=== PATIENT | female | born 1970 | race Caucasian/White ===

== ENCOUNTER 2017-07-28 19:06 | Emergency (ER) | payer OTHER ==
[2017-07-28] MEDS ORDERED: NS 1,000 ML IV ONE (19:51)
--- NOTE | 2017-07-28 19:52 | EDPHY ---
H & P Smoking Status: Never smoked Time Seen by Provider: 07/28/17 19:31 HPI/ROS: Patient was seen by Dr. Jones and not by me (Sammy Palmer) CHIEF COMPLAINT: Lightheadedness, chest pain, myalgias, cough HISTORY OF PRESENT ILLNESS: The patient has a number of chronic medical conditions including fibromyalgia, Lyme disease and rheumatoid arthritis. She presents to the ED with a constellation of symptoms including persistent tachycardia, neck pain, lightheadedness and a several week history of cough. The patient denies any vomiting, fever or diarrhea. She denies dysuria. She denies asymmetric calf pain or swelling. She denies recent immobilization. REVIEW OF SYSTEMS: A comprehensive 10 point review of systems is otherwise negative aside from elements mentioned in the history of present illness. (Ludwin Jones) Physical Exam: General Appearance: Alert, anxious, no acute distress Eyes: Pupils equal and round no pallor or injection ENT, Mouth: Mucous membranes moist Respiratory: There are no retractions, lungs are clear to auscultation Cardiovascular: Regular rate and rhythm Gastrointestinal: Abdomen is soft and nontender, no masses, bowel sounds normal Neurological: A&O, normal motor function, normal sensory exam, normal cranial nerves Skin: Warm and dry, no rashes Musculoskeletal: Neck is supple nontender, no meningeal symptoms Extremities: symmetrical, full range of motion Psychiatric: Patient is oriented X 3, there is no agitation (Ludwin Jones) Constitutional: Initial Vital Signs Temperature (C) 37.0 C 07/28/17 19:23 Heart Rate 91 07/28/17 19:23 Respiratory Rate 20 07/28/17 19:23 Blood Pressure 133/76 H 07/28/17 19:23 O2 Sat (%) 97 07/28/17 19:23 O2 Delivery Mode Room Air Allergies/Adverse Reactions: celecoxib [From Celebrex] Allergy (Verified 07/28/17 19:23) streptomycin Allergy (Verified 07/28/17 19:23) STEROIDS Allergy (Uncoded 07/28/17 19:23) Home Medications: Medication Instructions Recorded Adderall 10 MG (*) 07/28/17 Ambien 07/28/17 Baclofen 07/28/17 CLONAZEPAM 07/28/17 Cymbalta 07/28/17 GABAPENTIN 07/28/17 IBUPROFEN 01/12/18 Linzess 07/28/17 Montelukast Sodium 07/28/17 Castine 7.5-325 Tablet 07/28/17 Plaquenil 200 mg (*) 07/28/17 Sulfasalazine 07/28/17 Tizanidine HCl 07/28/17 Valacyclovir 07/28/17 ZYRTEC 07/28/17 Medical Decision Making - Diagnostics EKG Interpretation: EKG: Complete interpretation has been separately recorded in the [employer] archive. Summary impression: Sinus rhythm, rate 73 (Ludwin Jones) Imaging Results: Imaging Impressions Chest X-Ray 07/28/17 19:52 Impression: No acute thoracic abnormality. ED Course/Re-evaluation: The patient presents to the ED with a constellation of symptoms including myalgias, tachycardia and lightheadedness. The patient's neurologic examination is no. No clinical evidence of meningitis. Her EKG demonstrates no evidence of an arrhythmia. The patient's laboratory studies are within normal limits. The patient also endorse symptoms of a chronic migraine headache. She received Phenergan for this. The patient has had some mild dyspnea and chest pain. The patient's D-dimer is negative which I feel adequately excludes pulmonary embolism. Patient's chest x-ray demonstrates no evidence of a pneumonia or pneumothorax. There is no evidence of cardiomegaly or CHF. At this point time I do feel the patient can follow up with her primary care provider for further evaluation of her symptoms. I see no emergency condition this evening that requires further stabilization. (Ludwin Jones) Differential Diagnosis: Differential diagnosis considered includes arrhythmia, anemia, acute coronary syndrome, viral syndrome, pulmonary embolism, migraine syndrome (Ludwin Jones) - Data Points Laboratory Results: Laboratory Results 07/28/17 19:40 07/28/17 19:40 07/28/17 07/28/17 07/28/17 19:40 19:40 19:40 WBC 8.17 10^3/uL 10^3/uL (3.80-9.50) RBC 4.31 10^6/uL 10^6/uL (4.18-5.33) Hgb 12.2 g/dL L g/dL (12.6-16.3) Hct 36.2 % L % (38.0-47.0) MCV 84.0 fL fL (81.5-99.8) MCH 28.3 pg pg (27.9-34.1) MCHC 33.7 g/dL g/dL (32.4-36.7) RDW 17.1 % H % (11.5-15.2) Plt Count 297 10^3/uL 10^3/uL (150-400) MPV 10.9 fL fL (8.7-11.7) Neut % (Auto) 63.2 % % (39.3-74.2) Lymph % (Auto) 24.5 % % (15.0-45.0) [place] % (Auto) 9.4 % % (4.5-13.0) Eos % (Auto) 1.8 % % (0.6-7.6) Baso % (Auto) 0.9 % % (0.3-1.7) Nucleat RBC Rel Count 0.0 % % (0.0-0.2) Absolute Neuts (auto) 5.16 10^3/uL 10^3/uL (1.70-6.50) Absolute Lymphs (auto) 2.00 10^3/uL 10^3/uL (1.00-3.00) Absolute Monos (auto) 0.77 10^3/uL 10^3/uL (0.30-0.80) Absolute Eos (auto) 0.15 10^3/uL 10^3/uL (0.03-0.40) Absolute Basos (auto) 0.07 10^3/uL 10^3/uL (0.02-0.10) Absolute Nucleated RBC 0.00 10^3/uL 10^3/uL (0-0.01) Immature Gran % 0.2 % % (0.0-1.1) Immature Gran # 0.02 10^3/uL 10^3/uL (0.00-0.10) D-Dimer 0.42 ug/mLFEU ug/mLFEU (0.00-0.50) Sodium 139 mEq/L mEq/L (135-145) Potassium 4.0 mEq/L mEq/L (3.5-5.2) Chloride 103 mEq/L mEq/L (97-110) Carbon Dioxide 24 mEq/l mEq/l (22-31) Anion Gap 12 mEq/L mEq/L (8-16) BUN 8 mg/dL mg/dL (7-23) Creatinine 0.7 mg/dL mg/dL (0.6-1.0) Estimated GFR > 60 Glucose 84 mg/dL mg/dL (70-100) Calcium 9.5 mg/dL mg/dL (8.5-10.4) Troponin I < 0.012 ng/mL ng/mL (0.000-0.034) Medications Given: Discontinued Medications Sodium Chloride (Ns) 1,000 mls @ 0 mls/hr IV EDNOW ONE; Wide Open PRN Reason: Protocol Stop: 07/28/17 19:52 Last Admin: 07/28/17 20:06 Dose: 1,000 mls Promethazine HCl (Phenergan) 12.5 mg IVP EDNOW ONE Stop: 07/28/17 20:39 Last Admin: 07/28/17 20:40 Dose: 12.5 mg Departure - Departure Disposition: Home, Routine, Self-Care Clinical Impression: Fatigue, Palpitations, Migraine Condition: Good Instructions: Acute Headache (DC), Heart Palpitations (ED) Additional Instructions: 1. Your workup in the emergency department demonstrates no evidence of an arrhythmia, metabolic abnormality, blood clot or cardiac condition. 2. I recommend follow up with our on-call composition stone applicator for further evaluation of your elevated heart rate. 3. Please return to the ED for markedly worsening symptoms or other concerns. 4. Please follow up with your primary care provider for a recheck within the next week. Referrals: MAGDALENA SWENSON [Primary Care Provider] - As per Instructions
[2017-07-28 19:56] LABS: PLATELET COUNT 297 10^3/uL (150-400)
--- NOTE | 2017-07-28 20:05 | CPEKG ---
Heart Rate: 73 RR Interval: 822 P-R Interval: 132 QRSD Interval: 96 QT Interval: 400 QTC Interval: 441 P Alle[place]: 64 QRS [place]: 62 T Wave [place]: 34 EKG Severity - NORMAL ECG - EKG Impression: SINUS RHYTHM Electronically Signed By: Ludwin Jones 28-Jul-2017 21:38:38
[2017-07-28] MEDS ORDERED: PROMETHAZINE HCL 25 MG/ML INJ ONE (20:38)
[2017-07-28] MEDS ORDERED: PROMETHAZINE HCL 25 MG/ML INJ IVP ONE (20:38)
[2017-07-28 21:17] VITALS: BP 129/78; PULSE 73; RESP 18; TEMP 98.6; O2SAT 96
== END 2017-07-28 21:16 | disposition home or self-care (01) ==
DX: R53.83 Other fatigue (principal); R00.2 Palpitations; G43.909 Migraine, unspecified, not intractable, without status migrainosus; E86.9 Volume depletion, unspecified
CPT/HCPCS: 96374; J2550